=== PATIENT | male | born 1985 | race African-American/Black ===

== ENCOUNTER 2022-11-23 21:11 | Observation (INO) | payer BC, OTHER ==
[2022-11-23 21:26] VITALS: BMI 29.6
[2022-11-23] MEDS ORDERED: levETIRAcetam 500 MG/5 ML INJECTION VIAL IVPB ONE ×2 (21:35→22:06)
[2022-11-23] MEDS ORDERED: SODIUM CHLORIDE 0.9% 500 ML INFUS.BAG IV ONE (21:35)
[2022-11-23 22:14] LABS: BASO % 0.9 % (0-2.0); EOS % 12.6 % (0-4.5); HEMATOCRIT 41.8 % (35.4-49); HEMOGLOBIN 14.6 GM/dL (11.7-16.9); LYMPH % 33.3 % (8-40); MCHC 34.9 g/dl (32.0-35.9); MEAN CELL VOLUME 80.3 fl (80-96); MEAN PLT VOLUME 8.5 fl (7.5-11.1); MONO % 9.5 % (3.8-10.2); NEUT % 43.7 % (42.8-82.8); PLATELET COUNT 219 10^3/uL (134-434); RBC 5.21 M/mm3 (4.00-5.60); RDW 13.9 % (11.9-15.9); WHITE BLOOD COUNT 6.1 K/mm3 (4.0-10.0)
[2022-11-23 22:37] LABS: ALBUMIN 3.9 g/dl (3.4-5.0); BLOOD UREA NITROGEN 13.3 mg/dL (7-18); CALCIUM 8.7 mg/dL (8.5-10.1); MAGNESIUM 1.9 mg/dL (1.8-2.4)
[2022-11-23 22:40] LABS: CREATININE 1.3 mg/dL (0.55-1.3)
[2022-11-23 22:42] LABS: BILIRUBIN,TOTAL 0.4 mg/dL (0.2-1); TOT PROT 7.4 g/dl (6.4-8.2)
[2022-11-23 22:53] LABS: LACTIC ACID 2.2 mmol/L (0.4-2.0)
[2022-11-23] MEDS ORDERED: LACTATED RINGERS SOLUTION 1000 ML INFUS.BAG IV ONE (23:00)
[2022-11-24 01:10] VITALS: RESP 20
[2022-11-24] MEDS ORDERED: LORazepam 2 MG/ML SDV VIAL IVPUSH PRN (03:31)
[2022-11-24] MEDS ORDERED: ENOXAPARIN NA (PORCINE) 40 MG/0.4 ML DISP.SYRIN SQ SCH (10:00)
[2022-11-24] MEDS ORDERED: FLUTICASONE PROP 0.05% 16 GM NASAL SPRAY NS SCH (10:00)
[2022-11-24] MEDS: amLODIPine BESYLATE 10 MG TABLET (FP) PO SCH ×2 (10:33→11:16)
[2022-11-24] MEDS: levETIRAcetam 500 MG/5 ML INJECTION VIAL IVPB SCH ×2 (10:35)
[2022-11-24 10:39] LABS: HEMATOCRIT 42.2 % (35.4-49); HEMOGLOBIN 14.7 GM/dL (11.7-16.9); MCH 28.1 pg (25.7-33.7); MCHC 34.9 g/dl (32.0-35.9); MEAN CELL VOLUME 80.5 fl (80-96); MEAN PLT VOLUME 9.5 fl (7.5-11.1); PLATELET COUNT 206 10^3/uL (134-434); RBC 5.24 M/mm3 (4.00-5.60); RDW 14.2 % (11.9-15.9); WHITE BLOOD COUNT 7.7 K/mm3 (4.0-10.0)
[2022-11-24] MEDS ORDERED: amLODIPine BESYLATE 5 MG TABLET (FP) PO SCH (10:41)
[2022-11-24 11:09] LABS: CALCIUM 8.8 mg/dL (8.5-10.1)
[2022-11-24 11:10] LABS: ALBUMIN 3.8 g/dl (3.4-5.0); BLOOD UREA NITROGEN 13.8 mg/dL (7-18)
[2022-11-24 11:13] LABS: CREATININE 1.1 mg/dL (0.55-1.3)
[2022-11-24 11:15] LABS: BILIRUBIN,TOTAL 0.4 mg/dL (0.2-1); TOT PROT 7.3 g/dl (6.4-8.2)
[2022-11-24 12:17] VITALS: BP 90/55; PULSE 69; TEMP 98.3
== END 2022-11-24 14:38 | disposition home or self-care (01) ==
LOC: JER 21:11 → UNDOADMOB 11-24 02:09 → JERBED 11-24 02:09 → INTOOBSV 11-24 03:59 → OBSVTOIN 11-24 03:59 → J6S 11-24 05:39 → JERBED 11-24 05:39 → J6S 11-24 09:58 → JERBED 11-24 09:58
PROVIDERS: ADMIT Internal Medicine; ATTEND Internal Medicine
PROC: 3E033GC Introduction of Other Therapeutic Substance into Peripheral Vein, Percutaneous Approach (ICD-10-PCS; principal; 2022-11-24)
PROC: 3E0337Z Introduction of Electrolytic and Water Balance Substance into Peripheral Vein, Percutaneous Approach (ICD-10-PCS; 2022-11-24)
PROC: 3E0337Z Introduction of Electrolytic and Water Balance Substance into Peripheral Vein, Percutaneous Approach (ICD-10-PCS; 2022-11-24)
DX: R56.9 Unspecified convulsions (principal)
CPT/HCPCS: 0241U-QW; 36415; 70450-TC; 71045-TC-FY; 72125-TC; 80053; 80177; 82550; 82553; 83605; 83735; 84146; 85025; 85027; 93005; 93010; 99285-25; G0378